=== PATIENT | male | born 1960 | race Caucasian/White ===

== ENCOUNTER 2018-01-08 14:45 | Inpatient (IN) | payer BC ==
--- NOTE | 2018-01-08 15:14 | ED ---
General Adult HPI - General Chief complaint: Psychiatric Symptoms Stated complaint: depression Source: patient Mode of arrival: ambulatory Limitations: no limitations - History of Present Illness Initial comments: Dictation was produced using [employer] dictation software. please excuse any grammatical, word or spelling errors. Chief Complaint: 57-year-old male past medical history of coronary artery disease, hypertension presents with suicidal ideation. History of Present Illness: Patient is a 57-year-old male past medical history of coronary artery disease, hypertension presents with suicidal ideation. Patient has been undergoing a lot of personal stress recently. He was recently and lost a lot of his personal belongings in the last 6 months. Patient has been feeling suicidal for the past month. His plan is to overdose on antihypertensive medications. He does have lisinopril at home. He is accompanied with his daughter who is concerned about patient's well-being. Patient denies any psychiatric history. He does have a history of suicidal attempt in the past. Denies any homicidal ideation. No visual or auditory hallucinations. The ROS documented in this emergency department record has been reviewed and confirmed by me. Those systems with pertinent positive or negative responses have been documented in the HPI. All other systems are other negative and/or noncontributory. - Related Data Previous Rx's Medication Instructions Recorded Aspirin 81 mg PO DAILY #1 chewable 02/17/15 Lisinopril [Zestril] 20 mg PO DAILY #28 tab 01/15/18 Melatonin 3 mg PO HS #28 tablet 01/15/18 Nicotine 14Mg/24Hr Patch [Habitrol] 1 patch TRANSDERM DAILY #28 patch 01/15/18 Sertraline [Zoloft] 100 mg PO DAILY #14 tab 01/15/18 Thiamine [Vitamin B-1] 100 mg PO DAILY@1200 #28 tab 01/15/18 Allergies Allergy/AdvReac Type Severity Reaction Status Date / Time No Known Allergies Allergy Verified 01/08/18 15:40 Review of Systems ROS Statement: Those systems with pertinent positive or pertinent negative responses have been documented in the HPI. ROS Other: All systems not noted in ROS Statement are negative. Past Medical History Past Medical History: Coronary Artery Disease (CAD), Hypertension Additional Past Medical History / Comment(s): gout History of Any Multi-Drug Resistant Organisms: None Reported Past Surgical History: Heart Catheterization With Stent Additional Past Surgical History / Comment(s): RtAlexx ankle Past Anesthesia/Blood Transfusion Reactions: No Reported Reaction Date of Last Stent Placement:: 2009 Past Psychological History: Depression Smoking Status: Current every day smoker Past Alcohol Use History: Daily Past Drug Use History: Marijuana General Exam - General Exam Comments Initial Comments: PHYSICAL EXAM: General Impression: Alert and oriented x3, not in acute distress HEENT: Normocephalic atraumatic, extra-ocular movements intact, pupils equal and reactive to light bilaterally, mucous membranes moist. Cardiovascular: Heart regular rate and rhythm, S1&S2 audible, no murmurs, rubs or gallops Chest: Lungs clear to auscultation bilaterally, no rhonchi, no wheeze, no rales Abdomen: Bowel sounds present, abdomen soft, non-tender, non-distended, no organomegaly Musculoskeletal: Pulses present and equal in all extremities, no peripheral edema Motor: Power 5/5 bilaterally, no focal deficits noted Neurological: CN II-XII grossly intact, no focal motor or sensory deficits noted Skin: Intact with no visualized rashes Psych: Depressed, disheveled Limitations: no limitations Course Vital Signs 01/08/18 01/08/18 14:58 20:21 Temperature 98.2 F 98.3 F Pulse Rate 80 58 L Respiratory 20 20 Rate Blood Pressure 138/77 129/76 O2 Sat by Pulse 98 98 Oximetry Medical Decision Making - Medical Decision Making ED course: 57-year-old male with history of suicidal attempt presents with symptoms side of ideation for one month. Patient has detailed means of committing suicide. Patient presents voluntarily with the accompaniment of his daughter. Patient denies any psychiatric history. Patient considered high risk for suicide. EPS nurse consulted. Patient blood alcohol was negative. Patient medically cleared for EPS assessment. EPS nurse evaluated patient with intention to place patient inpatient psychiatry. She was concerned the patient was showing signs of EtOH withdrawal. Patient did not admit to EtOH abuse to me because he has history of probation and is told not to drink. He did admit to EPS nurse that he is a daily alcohol. Patient given by mouth Ativan for now. Patient notes showing any overt signs of EtOH withdrawal. CIWA assessment to be performed per schedule Patient to be admitted to inpatient psychiatry. - Lab Data Result diagrams: 01/09/18 08:28 01/09/18 08:28 Disposition Clinical Impression: Suicidal ideation Disposition: TRANSFER TO PSYCH HOSP/UNIT Condition: Stable Time of Disposition: 22:17
[2018-01-08] MEDS ORDERED: LORazepam 1 MG TAB PO STA (17:05)
[2018-01-08] MEDS ORDERED: MAGNESIUM HYDROXIDE 2,400 MG/10 ML CUP PO PRN (21:37)
[2018-01-08] MEDS ORDERED: ACETAMINOPHEN TAB 325 MG TAB PO PRN (21:37)
[2018-01-08] MEDS ORDERED: MAG HYDROX/AL HYDROX/SIMETH 30 ML CUP PO PRN (21:37)
[2018-01-09] MEDS: NICOTINE 14MG/24HR PATCH TRANSDERM SCH (08:45)
[2018-01-09] MEDS: LISINOPRIL 20 MG TAB PO SCH (08:45)
[2018-01-09] MEDS: ASPIRIN 81 MG PO SCH (08:45)
[2018-01-09 08:50] LABS: Anisocytosis Slight; Basophils # (A) 0.1 k/uL (0-0.2); Basophils % (A) 1 %; Eosinophils # (A) 0.1 k/uL (0-0.7); Eosinophils % (A) 1 %; HCT 46.1 % (39.0-53.0); HGB 15.1 gm/dL (13.0-17.5); Lymphocytes # (A) 1.6 k/uL (1.0-4.8); Lymphocytes % (A) 24 %; MCH 30.1 pg (25.0-35.0); MCHC 32.7 g/dL (31.0-37.0); Mean Platelet Volume 6.6; Monocytes # (A) 0.4 k/uL (0-1.0); Monocytes % (A) 7 %; Neutrophils # (A) 4.2 k/uL (1.3-7.7); Neutrophils % (A) 65 %; Platelet Count 224 k/uL (150-450); RBC 5.01 m/uL (4.30-5.90); RDW 16.4 % (11.5-15.5); WBC 6.5 k/uL (3.8-10.6)
[2018-01-09] MEDS: SERTRALINE 50 MG TAB PO SCH (10:49)
[2018-01-09] MEDS: THIAMINE 100 MG TAB PO SCH (10:49)
[2018-01-09] MEDS: MULTIVITAMINS, THERA 1 EACH TAB PO SCH (10:49)
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
[2018-01-09 14:31] LABS: Appearance,Urine Clear (Clear); Bilirubin,Urine Negative (Negative); Blood,Urine Negative (Negative); Color,Urine Yellow; Glucose,Urine (UA) Negative (Negative); Ketones,Urine Negative (Negative); Leukocyte Esterase,Urine Negative (Negative); Nitrite,Urine Negative (Negative); Protein,Urine Negative (Negative); Specific Gravity,Urine 1.011 (1.001-1.035); Urobilinogen,Urine <2.0 mg/dL (<2.0)
[2018-01-09 15:16] LABS: Anion Gap 10 mmol/L; Blood Urea Nitrogen 12 mg/dL (9-20); Carbon Dioxide 25 mmol/L (22-30); Chloride 102 mmol/L (98-107); Glucose 102 mg/dL (74-99); Potassium 4.8 mmol/L (3.5-5.1); Sodium 137 mmol/L (137-145)
[2018-01-09 15:17] LABS: ALT 24 U/L (21-72); AST 19 U/L (17-59); Albumin 4.4 g/dL (3.5-5.0); Alkaline Phosphatase 71 U/L (38-126); Calcium 9.5 mg/dL (8.4-10.2); Cholesterol 225 mg/dL (<200); HDL Cholesterol 59 mg/dL (40-60); LDL Cholesterol,Calculated 137 mg/dL (0-99); Total Bilirubin 0.5 mg/dL (0.2-1.3); Total Protein 7.1 g/dL (6.3-8.2); Triglycerides 147 mg/dL (<150)
[2018-01-09 18:14] LABS: Hemoglobin A1C 4.8 % (4.0-6.0)
[2018-01-10 06:18] VITALS: RESP 16
[2018-01-10] MEDS: NICOTINE 14MG/24HR PATCH TRANSDERM SCH (08:46)
[2018-01-10] MEDS: SERTRALINE 50 MG TAB PO SCH (08:46)
[2018-01-10] MEDS: ASPIRIN 81 MG PO SCH (08:46)
[2018-01-10] MEDS: LISINOPRIL 20 MG TAB PO SCH (08:46)
[2018-01-10] MEDS: THIAMINE 100 MG TAB PO SCH (11:38)
[2018-01-10] MEDS: MULTIVITAMINS, THERA 1 EACH TAB PO SCH (11:38)
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
--- NOTE | 2018-01-10 13:21 | P.MDCNMH ---
History of Present Illness H&P Date: 01/10/18 Chief Complaint: Medical evaluation 57-year-old male with history of smoking and alcohol abuse, depression, COPD and hypertension here for treatment of acutely worsening depression as well as suicidal ideation. He has been seen by his psychiatrist. He was started on Zoloft. Other than some headaches he denied having any physical symptoms including shortness of breath, chest pain, nausea or vomiting, fevers or chills , cough, abdominal pain, diarrhea or urinary symptoms. Review of Systems 12 point review of system performed, negative except HPI Past Medical History Past Medical History: Coronary Artery Disease (CAD), Hypertension Additional Past Medical History / Comment(s): gout History of Any Multi-Drug Resistant Organisms: None Reported Past Surgical History: Heart Catheterization With Stent Additional Past Surgical History / Comment(s): Rt. ankle Past Anesthesia/Blood Transfusion Reactions: No Reported Reaction Date of Last Stent Placement:: 2009 Past Psychological History: Depression Smoking Status: Current every day smoker Past Alcohol Use History: Daily Past Drug Use History: Marijuana Medications and Allergies Home Medications Medication Instructions Recorded Confirmed Type Aspirin 81 mg PO DAILY #1 chewable 02/17/15 01/08/18 Rx Lisinopril [Zestril] 20 mg PO DAILY 01/08/18 01/08/18 History Allergies Allergy/AdvReac Type Severity Reaction Status Date / Time No Known Allergies Allergy Verified 01/08/18 15:40 Physical Exam Vitals: Vital Signs Temp Pulse Resp BP 01/10/18 06:17 97.9 F 54 L 16 162/78 Constitutional: No acute distress, conversant, pleasant Eyes:Anicteric sclerae, moist conjunctiva, no lid-lag, PERRLA, ENMT: Oropharynx clear, no erythema, exudates Neck: Supple, FROM, no masses, or JVD, No carotid bruits, No thyromegaly Lungs: Clear to auscultation, Clear to percussion, Normal respiratory effort, no accessory muscle use Cardiovascular: Heart regular in rate and rhythm, No murmurs, gallops, or rubs, No peripheral edema Abdominal: Soft, Nontender, no guarding, rebound or rigidity, Normoactive bowel sounds, No hepatomegaly, No splenomegaly, No palpable mass Skin: Normal temperature, tone, texture, turgor, no induration, No subcutaneous nodules, No rash, lesions, No ulcers Extremities: No digital cyanosis, No clubbing, Pedal pulses intact and symmetrical, Radial pulses intact and symmetrical, No calf tenderness Neuro: Muscles Strength 5/5 in all 4 extremities, Sensation to light touch grossly present throughout, Cranial nerves II-XII grossly intact, no focal sensory deficits Cranial Nerve Examination - Cranial Nerves Cranial Nerve II- Optic: Intact Cranial Nerve III- Oculomotor: Intact Cranial Nerve IV- Trochlear: Intact Cranial Nerve V- Trigeminal: Intact Cranial Nerve - Abducens: Intact Cranial Nerve VII- Facial: Intact Cranial Nerve VIII- Auditory: Intact Cranial Nerve IX- Glossopharyngeal: Intact Cranial Nerve X- Vagus: Intact Cranial Nerve XI- Accessory: Intact Cranial Nerve XII- Hypoglossal: Intact Results CBC & Chem 7: 01/09/18 08:28 01/09/18 08:28 Labs: Abnormal Lab Results - Last 24 Hours (Table) 01/09/18 Range/Units 08:28 Glucose 102 H (74-99) mg/dL Cholesterol 225 H (<200) mg/dL LDL Cholesterol, Calc 137 H (0-99) mg/dL Assessment and Plan Plan: #1 Health maintenance CBC, CMP, lipid profile, TSH reviewed Patient needs to exercise more and watch his diet to treat his high LDL which came back at 137. #2 Essential hypertension/COPD Continue BP meds Blood pressure is stable COPD is stable, not on any medications #3 Smoking and alcohol abuse Counseled to quit Currently have a nicotine patch Not interested in quitting at the moment.
[2018-01-10] MEDS: LORazepam 1 MG TAB PO PRN (20:56)
[2018-01-11] MEDS: ASPIRIN 81 MG PO SCH (10:33)
[2018-01-11] MEDS: LISINOPRIL 20 MG TAB PO SCH (10:33)
[2018-01-11] MEDS: NICOTINE 14MG/24HR PATCH TRANSDERM SCH (10:33)
[2018-01-11] MEDS: SERTRALINE 50 MG TAB PO SCH (10:33)
[2018-01-11] MEDS: MULTIVITAMINS, THERA 1 EACH TAB PO SCH (12:57)
[2018-01-11] MEDS: THIAMINE 100 MG TAB PO SCH (12:57)
--- NOTE | 2018-01-11 14:21 | P.PN ---
Progress Note - Text Progress Note Date: 01/11/18 Interval History: Patient is a 57-year-old male who was seen today and he states that he slept for 6 hours last night has been eating okay and has not been having any nausea or tremors. He states that he continues to feel depressed and states that he doesn't feel rested in the morning. He states that he's always had poor sleep in part of the reason that he has restarted drinking or continued to drink. Patient reported no side effects from the medication and stated that he was not currently having any suicidal ideation. Patient was encouraged to attend groups. Mental Status: Appearance/Attitude: Patient is casually dressed in soiled clothing, makes intermittent eye contact and was cooperative Behavior: Patient did not display any psychomotor agitation or retardation Speech/Language: Patient's speech was spontaneous of normal volume and rhythm and he is coherent Thought Process: Patient is goal-directed there is no evidence of loose association or flight of ideas Thought Content: Patient denies any auditory or visual hallucinations and no delusions or paranoid ideation or elicited. Patient states that his appetite is good and he is sleeping fairly well here. Patient reports some very minimal tremors this morning. He states that he remains depressed and tired. Suicidal/Homicidal Ideation: He denies any current suicidal or homicidal ideation Sensorium/Cognition: Patient is alert and oriented to person, place, time and his recent and remote memory are grossly intact Mood/Affect: Patient's mood is depressed and his affect is blunted Insight/Judgment: Patient's insight and judgment are fair Assessment: Patient is pleasant her today, he states he remains depressed was not requesting to leave the hospital or questioning why he was in the hospital. Patient states he is not having any suicidal ideation and states that his sleep was fair last evening. He states that he is not having any appetite disturbance and reports only mild tremor this morning. Patient states that he has no side effects from the Zoloft. Patient continues to report that he is not interested in any inpatient or outpatient rehab programs. Plan: Patient will be increased to Zoloft 75 mg beginning today and on Sunday morning his Zoloft dose will be increased to 100 mg in the morning to target his mood. Patient will also be placed on melatonin 3 mg at bedtime to improve his sleep. Patient was encouraged to attend groups and activities. Patient was continued to be encouraged to consider outpatient or inpatient rehab on discharge for his alcohol use disorder. Patient continues to require hospitalization to further stabilize his mood
[2018-01-11] MEDS: MELATONIN 3 MG TABLET PO SCH (21:31)
[2018-01-12 06:38] VITALS: TEMP 98
[2018-01-12] MEDS: NICOTINE 14MG/24HR PATCH TRANSDERM SCH (10:10)
[2018-01-12] MEDS: LISINOPRIL 20 MG TAB PO SCH (10:10)
[2018-01-12] MEDS: ASPIRIN 81 MG PO SCH (10:11)
[2018-01-12] MEDS: SERTRALINE 50 MG TAB PO SCH (10:12)
[2018-01-12] MEDS: THIAMINE 100 MG TAB PO SCH (13:06)
[2018-01-12] MEDS: MULTIVITAMINS, THERA 1 EACH TAB PO SCH (13:06)
--- NOTE | 2018-01-12 15:22 | P.PN ---
Progress Note - Text Progress Note Date: 01/12/18 Interval history: Patient is seen in [facility] today. He reports he slept about 5 or 6 hours last night. He does describe feeling tired today. He is currently on Zoloft. He relates that his mood is doing okay. He is usually taking the Ativan only once a day in the evening. Mental status exam: He is alert and cooperative with the interview. Speech is fluent, not rapid or pressured. Thought processes organized. He describes his mood as okay. He denies any thoughts of harm to self or others. He does not show any agitation. No evidence of psychosis. Plan: Patient will be maintained on current psychotropic medication regimen. We 'll continue to monitor for any medication side effects monitor his ongoing response. We'll continue to cover this patient through the weekend.
[2018-01-12] MEDS: MELATONIN 3 MG TABLET PO SCH (21:30)
[2018-01-13] MEDS: THIAMINE 100 MG TAB PO SCH (09:21)
[2018-01-13] MEDS: LISINOPRIL 20 MG TAB PO SCH (09:21)
[2018-01-13] MEDS: MULTIVITAMINS, THERA 1 EACH TAB PO SCH (09:21)
[2018-01-13] MEDS: SERTRALINE 100 MG TAB PO SCH (09:21)
[2018-01-13] MEDS: ASPIRIN 81 MG PO SCH (09:21)
[2018-01-13] MEDS: NICOTINE 14MG/24HR PATCH TRANSDERM SCH (09:21)
--- NOTE | 2018-01-13 14:04 | P.PN ---
Progress Note - Text Progress Note Date: 01/13/18 Interval history: Patient reports that he is feeling much better. He talks about his family being supportive. We talked about following up with aftercare treatment. He does not seem to voice any adverse psychotropic medication side effects. He slept about 6 hours last night. Mental status exam: He is alert and cooperative with the interview. His affect shows range. His mood is improved. He denies any thoughts of harm to self or others. His no evidence of psychosis or agitation. Plan: We'll maintain current psychotropic medication regimen. Continue to monitor for any medication side effects. Status is improved, continue to monitor his ongoing response to treatment.
[2018-01-13] MEDS: MELATONIN 3 MG TABLET PO SCH (21:45)
[2018-01-14] MEDS: ASPIRIN 81 MG PO SCH (09:21)
[2018-01-14] MEDS: LISINOPRIL 20 MG TAB PO SCH (09:21)
[2018-01-14] MEDS: NICOTINE 14MG/24HR PATCH TRANSDERM SCH (09:21)
[2018-01-14] MEDS: SERTRALINE 100 MG TAB PO SCH (09:21)
[2018-01-14] MEDS: MULTIVITAMINS, THERA 1 EACH TAB PO SCH (12:00)
[2018-01-14] MEDS: THIAMINE 100 MG TAB PO SCH (12:00)
--- NOTE | 2018-01-14 14:26 | P.PN ---
Progress Note - Text Progress Note Date: 01/14/18 Interval History: Patient is a 57-year-old male who was seen today and he reports that he slept only about 4 hours last night had slept better the night previous. He states he is no longer feeling hopeless or helpless and states he' s not having any suicidal thoughts and isn't feeling depressed. He states he is also less irritable. He states he has been attending groups and activities. He states his appetite is good and he reports no signs of withdrawal. Patient states that he plans to look for a job when he is released and try to get his life back on track. Mental Status:Appearance/Attitude: Patient is casually dressed, makes good eye contact and is cooperative. Behavior: Patient does not exhibit any psychomotor agitation or retardation. Speech/Language: Patient's speech is spontaneous and normal volume and rhythm and he is coherent. Thought Process: Patient is goal-directed there is no evidence of loose association or flight of ideas Thought Content: Patient denies any auditory or visual hallucinations no delusions or paranoid ideation or elicited. He states he is no longer feeling hopeless or helpless states he is much less irritable. He reports he sleeping fairly well, last night for 4 hours but prior to that he had been sleeping well. He states that he is appetite is good and no symptoms of alcohol withdrawal. Patient states that he plans on looking for a job on discharge to try to get his life on track. Suicidal/Homicidal Ideation: Patient denies any current suicidal or homicidal ideation Sensorium/Cognition: Patient is alert and oriented to person, place, time and his recent and remote memory are grossly intact Mood/Affect: Patient's mood is less depressed and his affect is less blunted Insight/Judgment: Patient's insight and judgment are fair Assessment: Patient reports that he is eating better, reports no current suicidal thoughts and states he is feeling less depressed and no longer as irritable or hopeless or helpless. He states he plans to look for a job on discharge to get his life back on track. States he did not sleep well last night but had been sleeping well the night prior to that. Patient reports he plans on living with either his daughter or friend after discharge. Patient has been attending groups and activities and is less irritable during the interview. Patient continues to decline referral for inpatient alcohol rehab. Plan: Patient continue on Zoloft 100 mg in the morning and melatonin 3 mg at bedtime to target his depressive symptoms and sleep problems. Patient and I discussed discharge tomorrow and he was agreeable with that plan. Patient will be discharged to live with either his daughter or his friend.
[2018-01-14] MEDS: MELATONIN 3 MG TABLET PO SCH (21:09)
[2018-01-14] MEDS: LORazepam 1 MG TAB PO PRN (21:09)
[2018-01-15] MEDS: NICOTINE 14MG/24HR PATCH TRANSDERM SCH (08:59)
[2018-01-15] MEDS: LISINOPRIL 20 MG TAB PO SCH (08:59)
[2018-01-15] MEDS: ASPIRIN 81 MG PO SCH (08:59)
[2018-01-15] MEDS: SERTRALINE 100 MG TAB PO SCH (09:00)
[2018-01-15 10:02] VITALS: BP 109/65; PULSE 74
[2018-01-15] MEDS: MULTIVITAMINS, THERA 1 EACH TAB PO SCH (12:08)
[2018-01-15] MEDS: THIAMINE 100 MG TAB PO SCH (12:08)
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
== END 2018-01-15 16:23 | disposition home or self-care (01) | DRG 897 ==
LOC: EC 14:45 → 3MHU 20:02
PROVIDERS: ADMIT Psychiatry & Neurology Psychiatry; ATTEND Psychiatry & Neurology Psychiatry
DX: F10.94 Alcohol use, unspecified with alcohol-induced mood disorder (principal); R45.851 Suicidal ideations; F17.210 Nicotine dependence, cigarettes, uncomplicated; I10 Essential (primary) hypertension; I25.10 Atherosclerotic heart disease of native coronary artery without angina pectoris; I25.2 Old myocardial infarction; J44.9 Chronic obstructive pulmonary disease, unspecified; M10.9 Gout, unspecified; G47.9 Sleep disorder, unspecified; Z79.899 Other long term (current) drug therapy; Z79.82 Long term (current) use of aspirin; Z95.5 Presence of coronary angioplasty implant and graft; Z65.3 Problems related to other legal circumstances; Z91.5 Personal history of self-harm
CPT/HCPCS: 80053; 80061; 81003; 82075; 83036; 84443; 85025; 93005; 99285

== ENCOUNTER 2019-12-15 14:56 | Emergency (ER) | payer BC, OTHER ==
[2019-12-15] MEDS ORDERED: DIPH,PERTUS(ACELL)TETVAC-LF 0.5 ML VIAL IM ONE (15:28)
[2019-12-15] MEDS ORDERED: CEPHALEXIN 500MG STARTER PACK 4 CAP BTL PO STA (15:29)
--- NOTE | 2019-12-15 15:30 | ED ---
Wound/Laceration HPI - General Chief Complaint: Wound/Laceration Stated Complaint: lt leg lac/infection Time Seen by Provider: 12/15/19 15:05 Source: patient Mode of arrival: ambulatory Limitations: no limitations - History of Present Illness Initial Comments: Patient is a 59-year-old male presenting to the emergency department with chief complaint of a laceration. She reports he lacerated the left lower extremity about 7 days ago. Patient states he never seek care and has been applying triple antibiotic. Patient reports now he suspecting an infection. States the laceration site is beginning to hurt. Denies any fevers or chills. Not aware of his tetanus status. Denies any discharge from the laceration site. Does report mild erythema surrounding the perimeter laceration per - Related Data Previous Rx's Medication Instructions Recorded Aspirin 81 mg PO DAILY #1 chewable 02/17/15 Lisinopril [Zestril] 20 mg PO DAILY #28 tab 01/15/18 Melatonin 3 mg PO HS #28 tablet 01/15/18 Nicotine 14Mg/24Hr Patch [Habitrol] 1 patch TRANSDERM DAILY #28 patch 01/15/18 Sertraline [Zoloft] 100 mg PO DAILY #14 tab 01/15/18 Thiamine [Vitamin B-1] 100 mg PO DAILY@1200 #28 tab 01/15/18 Allergies Allergy/AdvReac Type Severity Reaction Status Date / Time No Known Allergies Allergy Verified 12/15/19 15:03 Review of Systems ROS Statement: Those systems with pertinent positive or pertinent negative responses have been documented in the HPI. ROS Other: All systems not noted in ROS Statement are negative. Past Medical History Past Medical History: Coronary Artery Disease (CAD), Hypertension Additional Past Medical History / Comment(s): gout History of Any Multi-Drug Resistant Organisms: None Reported Past Surgical History: Heart Catheterization With Stent Additional Past Surgical History / Comment(s): Rt. ankle Past Anesthesia/Blood Transfusion Reactions: No Reported Reaction Date of Last Stent Placement:: 2009 Past Psychological History: Depression Smoking Status: Current every day smoker Past Alcohol Use History: Daily Past Drug Use History: Marijuana General Exam Limitations: no limitations General appearance: alert, in no apparent distress Head exam: Present: atraumatic, normocephalic, normal inspection Eye exam: Present: normal appearance, PERRL, EOMI Pupils: Present: normal accommodation ENT exam: Present: normal exam, normal oropharynx, mucous membranes moist Neck exam: Present: normal inspection, full ROM. Absent: tenderness Respiratory exam: Present: normal lung sounds bilaterally. Absent: respiratory distress, wheezes Cardiovascular Exam: Present: regular rate, normal rhythm, normal heart sounds. Absent: bradycardia, tachycardia Extremities exam: Present: full ROM, tenderness (Very mild tenderness to palpation on the laceration site), normal capillary refill. Absent: normal inspection (Laceration with flap formation measuring approximately 4 cm on the anterior aspect of the left lower extremity. No active discharge at this time. Mild erythema surrounding the parameter of the laceration site. This does not appear to be infected at this time. Triple antibiotic noted that was applied by the patient), pedal edema, joint swelling, calf tenderness, other (+2 dorsalis pedis and posterior tibialis bilaterally.) Back exam: Present: normal inspection, full ROM. Absent: CVA tenderness (R), CVA tenderness (L) Neurological exam: Present: alert, oriented X3, normal gait Psychiatric exam: Present: normal affect, normal mood Skin exam: Present: warm, dry, intact, normal color Course Vital Signs 12/15/19 14:58 Temperature 97.6 F Pulse Rate 80 Respiratory 18 Rate Blood Pressure 155/91 O2 Sat by Pulse 97 Oximetry Medical Decision Making - Medical Decision Making Patient is a 59-year-old male presenting to the emergency department with chief complaint of a laceration. This occurred about one week ago, no laceration repair was performed. No sutures will be applied this time. The laceration site does not appear to be infected. No active drainage or discharge at this t sanjeev. No fevers or chills. Tetanus status administered. Patient started on Keflex and discharged with Keflex. Return parameters thoroughly discussed with patient was understanding and agreeable. Wound care instructions given. Case discussed with physician. Disposition Clinical Impression: Laceration, Healing laceration Disposition: HOME SELF-CARE Condition: Stable Instructions (If sedation given, give patient instructions): Laceration (DC) Additional Instructions: Take prescribed medication as directed. Follow up with her primary care. Return to emergency department if symptoms worsen. Is patient prescribed a controlled substance at d/c from ED?: No Referrals: Cuba Cottrell MD [Primary Care Provider] - 1-2 days Time of Disposition: 15:30
[2019-12-15 15:59] VITALS: BP 145/87; PULSE 81; RESP 16; TEMP 97.8
== END 2019-12-15 15:58 | disposition home or self-care (01) ==
LOC: EC 14:56
DX: S81.812A Laceration without foreign body, left lower leg, initial encounter (principal); Z23 Encounter for immunization; I25.10 Atherosclerotic heart disease of native coronary artery without angina pectoris; F17.200 Nicotine dependence, unspecified, uncomplicated; Z95.5 Presence of coronary angioplasty implant and graft; X58.XXXA Exposure to other specified factors, initial encounter
CPT/HCPCS: 90471; 90715; 99282

== ENCOUNTER 2020-03-07 18:55 | Emergency (ER) | payer OTHER ==
[2020-03-07] MEDS ORDERED: EPINEPHrine 10 ML SYRINGE (0.1 MG/ML) ONE (18:57)
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
--- NOTE | 2020-03-09 07:59 | CDI ---
Dear Mildred Claudio, Please do addendum for intubation procedure, in MDM mention as procedure done. Thank you, Shorty Schmidt [employer]dn[employer] If you have any questions, please contact Brim Curler at [phone] [facility]
== END 2020-03-07 19:16 | disposition expired ==
LOC: EDBD → MERGE 18:55 → EC 18:55
DX: I46.8 Cardiac arrest due to other underlying condition (principal); S22.42XA Multiple fractures of ribs, left side, initial encounter for closed fracture; S51.812A Laceration without foreign body of left forearm, initial encounter; S80.211A Abrasion, right knee, initial encounter; S30.1XXA Contusion of abdominal wall, initial encounter; J98.11 Atelectasis; V29.9XXA Motorcycle rider (driver) (passenger) injured in unspecified traffic accident, initial encounter; Y92.410 Unspecified street and highway as the place of occurrence of the external cause
CPT/HCPCS: 99285; 92950; 31500; 71045; J0171